=== PATIENT | female | born 2000 | race Caucasian/White ===

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

== ENCOUNTER 2018-05-21 03:03 | Inpatient (IN) ==
[2018-05-21] MEDS ORDERED: D5 1/2 NS 1000 ML 1,000 ML IV ONE (03:18)
[2018-05-21] MEDS ORDERED: D5 1/2 NS 1000 ML 1,000 ML IV SCH ×2 (03:20→03:45)
[2018-05-21] MEDS ORDERED: D5LR 1L W PITOCIN 10 UNITS/L 10 UNITS/1,000 ML BAG IV PRN (03:45)
[2018-05-21] MEDS ORDERED: NUBAIN INJ 200 MG VIAL MULTIDOSE IVP PRN (03:45)
[2018-05-21] MEDS ORDERED: PHENERGAN INJ 25 MG IV PRN ×2 (03:45→10:53)
[2018-05-21] MEDS ORDERED: REGLAN INJ 10 MG VIAL IVP PRN (03:45)
[2018-05-21] MEDS ORDERED: XYLOCAINE 1 % (PLAIN) ONE (04:09)
[2018-05-21] MEDS ORDERED: D5LR 1L W PITOCIN 10 UNITS/L 10 UNITS/1,000 ML BAG IV ONE (04:09)
[2018-05-21] MEDS ORDERED: FENTANYL INJ 100 mcg ONE (04:09)
[2018-05-21] MEDS ORDERED: PITOCIN ONE (04:09)
[2018-05-21] MEDS ORDERED: LR 1000 ML IV 1,000 ML IV ONE ×2 (04:09→05:15)
[2018-05-21] MEDS ORDERED: ADRENALINE CHL INJ ONE (04:10)
[2018-05-21] MEDS ORDERED: NAROPIN EPIDURAL 0.2% + FENTANYL 90MCG 60 ML EPI ONE (04:10)
[2018-05-21] MEDS ORDERED: D5 1/2 NS 1L W PITOCIN 20 UNITS/L 20 UNITS/1,000 ML BAG IV ONE (04:10)
[2018-05-21] MEDS ORDERED: XYLOCAINE-MPF 1% ONE (04:10)
[2018-05-21] MEDS ORDERED: XYLOCAINE 1 % (PLAIN) IM ONE (05:15)
[2018-05-21] MEDS ORDERED: NUBAIN INJ 10 ONE (05:16)
[2018-05-21 05:45] VITALS: BMI 22.8
[2018-05-21] MEDS ORDERED: FENTANYL INJ 100 mcg EPI ONE (05:55)
[2018-05-21] MEDS ORDERED: NAROPIN EPIDURAL 0.2% + FENTANYL 90MCG EPI SCH (05:55)
[2018-05-21] MEDS ORDERED: ADRENALINE CHL INJ (ABBOJECT) IVP ONE (05:55)
[2018-05-21 06:12] LABS: AMNISURE ROM TEST THERE IS A RUPTURE (NO RUPTURE)
[2018-05-21 06:17] LABS: BASOPHILS % (AUTO) 0.3 % (0.2-1.0); EOSINOPHILS # (AUTO) 0.1 x10^3/uL (0.0-0.2); EOSINOPHILS % (AUTO) 0.6 % (0.9-2.9); HEMATOCRIT 32.5 % (36.0-47.0); HEMOGLOBIN 10.8 g/dL (12.0-16.0); LYMPHOCYTES # (AUTO) 1.7 X10^3/uL (1.3-2.9); LYMPHOCYTES % (AUTO) 13.6 % (21.0-51.0); MEAN CORPUSCULAR HEMOGLOBIN 28.6 pg (27.0-34.0); MEAN CORPUSCULAR HGB CONC 33.3 g/dL (33.0-35.0); MEAN PLATELET VOLUME 9.3 fL (7.4-11.0); MONOCYTES # (AUTO) 1.1 x10^3/uL (0.3-0.8); MONOCYTES % (AUTO) 8.3 % (0.0-13.0); NEUTROPHILS # (AUTO) 9.8 x10^3/uL (2.2-4.8); NEUTROPHILS % (AUTO) 77.2 % (42.0-75.0); PLATELET COUNT 250 X10^3/uL (150.0-450.0); RED BLOOD COUNT 3.79 X10^6/uL (3.5-5.4); RED CELL DISTRIBUTION WIDTH 12.7 % (11.6-16.5); WHITE BLOOD COUNT 12.7 X10^3/uL (3.6-10.0)
[2018-05-21 06:30] LABS: ALANINE AMINOTRANSFERASE 11 Units/L (12-78); ALBUMIN 2.8 g/dL (3.4-5.0); ALKALINE PHOSPHATASE 171 Units/L (45-150); ASPARTATE AMINO TRANSFERASE 14 Units/L (15-37); BLOOD UREA NITROGEN 3 mg/dL (7-18); CALCIUM 8.7 mg/dL (8.5-10.1); CHLORIDE 103 mmol/L (98-107); COR CA(FOR HYPOALB) 9.7 mg/dL (8.5-10.1); CREATININE 0.51 mg/dL (0.55-1.02); SODIUM 138 mmol/L (136-145); TOTAL PROTEIN 6.7 g/dL (6.4-8.2); eGFR NON BLACK RACES > 60 (>60)
[2018-05-21 07:05] LABS: BILIRUBIN,URINE NEGATIVE (NEGATIVE); BLOOD/HEMOGLOBIN,URINE NEGATIVE (NEGATIVE); GLUCOSE, URINE NEGATIVE (NEGATIVE); KETONES,URINE NEGATIVE (NEGATIVE); LEUKOCYTE ESTERASE ,URINE NEGATIVE (NEGATIVE); NITRITES,URINE NEGATIVE (NEGATIVE); PROTEIN,URINE NEGATIVE (NEGATIVE); UROBILINOGEN,URINE NORMAL (NORMAL)
[2018-05-21 07:13] LABS: APPEARANCE,URINE CLEAR (CLEAR); COLOR,URINE YELLOW (YELLOW)
--- NOTE | 2018-05-21 07:29 | DR.OB ---
OB Quick Note - Assessment/Plan Assessment/Plan: L&D 05/21/18 at 7:00am Pitocin=10mu/min. S-No complaint. s/p epidural. O-Afebrile,VSS HQG=[id number] with good LTV, +accel, no decel. CTX=q 2-3 min., about 35-55mmHg CVX=4cm/100%/0/VTX SROM noted with clear fluid. IUPC and FSE placed. A-IUP at 37 1/7 weeks with SROM P-Cont. pitocin augmentation Anticipate
[2018-05-21] MEDS: D5 1/2 NS 1000 ML 1,000 ML with PITOCIN 20 UNITS IV SCH ×6 (10:38→20:07)
[2018-05-21] MEDS ORDERED: MILK OF MAGNESIA PO PRN (12:40)
[2018-05-21] MEDS ORDERED: ADACEL or BOOSTRIX TDaP VACCINE IM ONE (12:40)
[2018-05-21] MEDS ORDERED: AMBIEN PO PRN (12:40)
[2018-05-21] MEDS ORDERED: DERMOPLAST SPRAY TOP PRN (12:40)
[2018-05-21] MEDS: MOTRIN TAB 800 MG PO PRN ×2 (14:14→22:15)
--- NOTE | 2018-05-21 14:34 | DR.OB ---
OB Quick Note - Assessment/Plan Assessment/Plan: Delivery Note REPACKER 05/21/18 at 10:37am Patient complete and pushing. Head delivered over intact perineum. Nose and mouth bulb suctioned. Nuchal cord x 1 reduced. Body delivered over intact perineum. Cord clamped x 2 and cut. Infant handed to attendant. Cord sent for gases. Placenta delivered spontaneously / intact / 3 vessel cord. No CVX tears noted. A small second degree midline tear noted and repaired with 0-vicryl in usual fashion. Viable female infant, VTX/OA, wt=5'10" and 9/9, stable to NBN. Mother stable to RR. [id number]=[id number].
[2018-05-21] MEDS: ZANTAC PO SCH (21:49)
[2018-05-22] MEDS: D5 1/2 NS 1000 ML 1,000 ML with PITOCIN 20 UNITS IV SCH ×2 (04:24)
[2018-05-22 05:01] LABS: HEMATOCRIT 28.7 % (36.0-47.0); HEMOGLOBIN 9.9 g/dL (12.0-16.0)
[2018-05-22] MEDS: MOTRIN TAB 800 MG PO PRN (06:16)
[2018-05-22] MEDS: ZANTAC PO SCH ×2 (08:39)
[2018-05-22] MEDS ORDERED: PRENATAL PLUS PO SCH (09:00)
[2018-05-22 13:19] VITALS: BP 97/64
== END 2018-05-22 13:05 | disposition home or self-care (01) | DRG 807 ==
LOC: ER 03:04 → LD 03:45 → MED/SURG 11:48
PROVIDERS: ADMIT Specialist; ATTEND Specialist
DX: Z37.0 Single live birth; Z23 Encounter for immunization; O98.311 Other infections with a predominantly sexual mode of transmission complicating pregnancy, first trimester; O99.89 Other specified diseases and conditions complicating pregnancy, childbirth and the puerperium; N87.0 Mild cervical dysplasia; O70.1 Second degree perineal laceration during delivery; Z3A.37 37 weeks gestation of pregnancy
CPT/HCPCS: 36415; 59409; 80053; 81003; 84112; 85014; 85018; 85025; 86592; 86850; 86900; 86901; 90715; 96365; 99284; A4216; A4222; S0197; J0171; J2300; J2590; J3010; J7120; S5010

== ENCOUNTER 2021-02-07 01:08 | Inpatient (IN) ==
[2021-02-07 01:37] VITALS: BMI 27.4
[2021-02-07 02:03] LABS: AMNISURE ROM TEST NO MEMBRANES RUPTURE (NO RUPTURE)
[2021-02-07] MEDS ORDERED: D5LR 1L W PITOCIN 10 UNITS/L 10 UNITS/1,000 ML BAG IV PRN (03:19)
[2021-02-07] MEDS ORDERED: PITOCIN IVP ONE (03:21)
[2021-02-07] MEDS ORDERED: REGLAN INJ 10 MG VIAL IVP PRN (03:21)
[2021-02-07] MEDS ORDERED: STADOL INJ IVP PRN (03:21)
[2021-02-07] MEDS ORDERED: PHENERGAN INJ 25 MG IM PRN ×2 (03:21→09:53)
[2021-02-07] MEDS ORDERED: MORPHINE SULFATE INJ 2 MG INJ IVP PRN (03:21)
[2021-02-07] MEDS ORDERED: BETADINE SOLN ONE (03:24)
[2021-02-07] MEDS ORDERED: PITOCIN ONE (03:24)
[2021-02-07] MEDS ORDERED: D5 1/2 NS 1L W PITOCIN 20 UNITS/L 20 UNITS/1,000 ML BAG IV ONE (03:24)
[2021-02-07] MEDS ORDERED: FENTANYL VIAL INJ 100 mcg ONE ×2 (03:25)
[2021-02-07] MEDS ORDERED: LR 1000 ML IV 1,000 ML IV ONE (03:25)
[2021-02-07] MEDS ORDERED: NAROPIN EPIDURAL 0.2% 100 ML ONE (03:26)
[2021-02-07 03:58] LABS: BASOPHILS % (AUTO) 0.3 % (0.2-1.0); EOSINOPHILS # (AUTO) 0.1 x10^3/uL (0.0-0.2); EOSINOPHILS % (AUTO) 0.7 % (0.9-2.9); HEMATOCRIT 26.4 % (36.0-47.0); HEMOGLOBIN 8.6 g/dL (12.0-16.0); LYMPHOCYTES % (AUTO) 15.1 % (21.0-51.0); MEAN CORPUSCULAR HEMOGLOBIN 24.8 pg (27.0-34.0); MEAN CORPUSCULAR HGB CONC 32.7 g/dL (33.0-35.0); MEAN CORPUSCULAR VOLUME 75.7 fL (80.0-100.0); MEAN PLATELET VOLUME 8.7 fL (7.4-11.0); MONOCYTES % (AUTO) 7.6 % (0.0-13.0); NEUTROPHILS # (AUTO) 10.3 x10^3/uL (2.2-4.8); NEUTROPHILS % (AUTO) 76.3 % (42.0-75.0); PLATELET COUNT 246 X10^3/uL (150.0-450.0); RED BLOOD COUNT 3.49 X10^6/uL (3.5-5.4); RED CELL DISTRIBUTION WIDTH 15.5 % (11.6-16.5); WHITE BLOOD COUNT 13.5 X10^3/uL (3.6-10.0)
[2021-02-07] MEDS ORDERED: D5 1/2 NS 1000 ML 1,000 ML IV SCH (04:00)
[2021-02-07 04:02] LABS: BLOOD UREA NITROGEN 3 mg/dL (7-18); CALCIUM 8.4 mg/dL (8.5-10.1); CARBON DIOXIDE 23.7 mmol/L (21-32); CHLORIDE 102 mmol/L (98-107); CREATININE 0.65 mg/dL (0.55-1.02); SODIUM 136 mmol/L (136-145); eGFR NON BLACK RACES > 60 (>60)
[2021-02-07 04:46] LABS: BILIRUBIN,URINE NEGATIVE (NEGATIVE); BLOOD/HEMOGLOBIN,URINE NEGATIVE (NEGATIVE); GLUCOSE, URINE NEGATIVE (NEGATIVE); KETONES,URINE NEGATIVE (NEGATIVE); LEUKOCYTE ESTERASE ,URINE NEGATIVE (NEGATIVE); NITRITES,URINE NEGATIVE (NEGATIVE); PH,URINE 6.5 (5.0 - 8.0); PROTEIN,URINE NEGATIVE (NEGATIVE); UROBILINOGEN,URINE NORMAL (NORMAL)
[2021-02-07 05:00] LABS: APPEARANCE,URINE CLEAR (CLEAR); COLOR,URINE YELLOW (YELLOW)
--- NOTE | 2021-02-07 06:35 | DR.OB ---
OB Quick Note - Assessment/Plan Assessment/Plan: L&D 02/07/21 at 6:20am Pitocin=6mu/min. S-No complaint. O-Afebrile,VSS BTC=[id number] with good LTV, +accel, no decel. CTX=q 1 1/2 to 3 min., about 45-55mmHg CVX=5cm/75%/0/VTX AROM with clear fluid. IUPC and FSE placed. A-IUP at 37 3/7 weeks in active labor P-Continue pitocin induction Anticipate
[2021-02-07] MEDS: D5 1/2 NS 1000 ML 1,000 ML with PITOCIN 20 UNITS IV SCH ×4 (10:28→18:05)
[2021-02-07] MEDS ORDERED: MILK OF MAGNESIA PO PRN (10:49)
[2021-02-07] MEDS ORDERED: ADACEL or BOOSTRIX TDaP VACCINE IM ONE (10:49)
[2021-02-07] MEDS ORDERED: AMBIEN PO PRN (10:49)
--- NOTE | 2021-02-07 11:41 | DR.OB ---
OB Quick Note - Assessment/Plan Assessment/Plan: Delivery Note CHEMIST FOOD 02/07/21 at 9:35am Patient complete and pushing. Head delivered over intact perineum. No nuchal cord. Nose and mouth bulb suctioned. Body delivered over intact perineum. Cord clamped x 2 and cut. handed to attendant. Cord sent for gases. Placenta delivered spontaneously / intact / 3 vessel cord. No CVX tears. A small introital tear noted requiring a figure-of-8 stitch or 0-vicryl for hemostasis. Viable female infant, VTX/OA, wt=6'10" and 9/9, stable to NBN. Mother stable to RR. [id number].
[2021-02-07] MEDS: DERMOPLAST PAIN RELIEF SPRAY TOP PRN (19:02)
[2021-02-07] MEDS: MOTRIN TAB 800 MG PO PRN (20:39)
[2021-02-08] MEDS: D5 1/2 NS 1000 ML 1,000 ML with PITOCIN 20 UNITS IV SCH ×4 (02:47→11:24)
[2021-02-08] MEDS: MOTRIN TAB 800 MG PO PRN (04:33)
[2021-02-08] MEDS: DERMOPLAST PAIN RELIEF SPRAY TOP PRN (04:52)
[2021-02-08 05:22] LABS: HEMATOCRIT 25.9 % (36.0-47.0); HEMOGLOBIN 8.4 g/dL (12.0-16.0)
[2021-02-08] MEDS ORDERED: DEPO-PROVERA CONTRACEPTIVE INJ IM ONE (06:35)
[2021-02-08] MEDS ORDERED: ZOLOFT PO SCH (09:00)
[2021-02-08] MEDS: PRENATAL PLUS PO SCH ×2 (09:28→09:30)
[2021-02-08] MEDS ORDERED: DEPO-PROVERA CONTRACEPTIVE INJ IM NR (10:00)
[2021-02-08 12:01] VITALS: BP 111/67
== END 2021-02-08 12:15 | disposition home or self-care (01) | DRG 807 ==
LOC: ER 01:12 → LD 03:19 → MED/SURG 11:21
PROVIDERS: ADMIT Specialist; ATTEND Specialist
DX: Z37.0 Single live birth; O70.0 First degree perineal laceration during delivery; Z20.822 Contact with and (suspected) exposure to COVID-19; O26.893 Other specified pregnancy related conditions, third trimester; Z3A.37 37 weeks gestation of pregnancy; D50.8 Other iron deficiency anemias